=== PATIENT | female | born 1990 | race Caucasian/White ===

== ENCOUNTER 2021-11-07 17:34 | Day surgery (SDC) | payer OTHER ==
[2021-11-07 18:05] VITALS: BMI 24.4
[2021-11-07 18:50] LABS: Fetal Membranes Rupture No Membranes Rupture (No Rupture)
[2021-11-07] MEDS ORDERED: hydrALAZINE 20 MG/ML VIAL SLOW IVP PRN (19:33)
== END 2021-11-07 21:44 | disposition home or self-care (01) ==
LOC: CSHLD/OP 17:34
PROVIDERS: ATTEND Obstetrics & Gynecology
DX: O99.891 Other specified diseases and conditions complicating pregnancy (principal); N89.8 Other specified noninflammatory disorders of vagina; O99.333 Smoking (tobacco) complicating pregnancy, third trimester; F17.210 Nicotine dependence, cigarettes, uncomplicated; Z3A.39 39 weeks gestation of pregnancy
CPT/HCPCS: 76815; 84112; 87480; 87510; 87660; 99285

== ENCOUNTER 2021-11-12 21:04 | Inpatient (IN) | payer OTHER ==
[2021-11-12 21:28] VITALS: BMI 24.3
[2021-11-12] MEDS ORDERED: hydrALAZINE 20 MG/ML VIAL SLOW IVP PRN (22:19)
[2021-11-12] MEDS ORDERED: Acetaminophen 500 MG TAB PO PRN (22:20)
[2021-11-12] MEDS ORDERED: Lactated Ringer's 1,000 ML IV SCH (23:45)
[2021-11-13] MEDS ORDERED: Misoprostol 200 MCG TAB PR PRN (00:03)
[2021-11-13] MEDS ORDERED: Diphenoxylate HCl/Atropine Tablet PO PRN (00:03)
[2021-11-13] MEDS ORDERED: Lidocaine 1% (PF) 30 ML VIAL SC PRN (00:03)
[2021-11-13] MEDS ORDERED: Ibuprofen 800 MG TAB PO PRN (00:03)
[2021-11-13] MEDS ORDERED: Carboprost 250 MCG/ML AMP IM PRN (00:03)
[2021-11-13] MEDS ORDERED: Methylergonovine 0.2 MG/ML VIAL IM PRN (00:03)
[2021-11-13] MEDS ORDERED: NS w/ Oxytocin 30 units 500 ML IV SCH (00:15)
[2021-11-13] MEDS ORDERED: Fentanyl 2 mcg/Bup 0.1% Cadd 100 ML ONE ×2 (00:17→08:56)
[2021-11-13 00:22] LABS: #Basophils 0.1 10x3/uL (0.0-0.2); #Eosinphils 0.2 10x3/uL (0.0-0.5); #Neutrophils 5.3 10x3/uL (1.5-8.4); %Basophils 0.6 % (0.0-2.0); %Eosinophils 2.5 % (0.0-6.0); %Monocytes 12.4 % (0.0-10.0); Hemoglobin 11.4 g/dL (12.0-15.5); Mean Corpuscular HGB CONC 33.6 g/dL (32.0-36.0); Mean Corpuscular Hemoglobin 30.2 pg (27.0-33.0); Mean Corpuscular Volume 89.9 fl (81.6-98.3); Mean Platelet Volume 11.1 fl (7.4-10.4); Platelet Count 291 10x3/uL (150-450); Red Blood Cell (RBC) Count 3.77 10x6/uL (3.90-5.03); White Blood Cell (WBC) Count 8.4 10x3/uL (3.5-10.5)
[2021-11-13 00:34] LABS: ALT (SGPT) 12 U/L (8-55); AST (SGOT) 15 U/L (5-34); Albumin 3.3 g/dL (3.5-5.0); Alkaline Phosphatase 144 U/L (40-110); Anion Gap 14 mmol/L (10-20); BUN (Urea Nitrogen) 10 mg/dL (7.0-18.7); Bilirubin, Total 0.3 mg/dL (0.2-1.2); Calc. Creatinine Clearance 143 mL/min (70-130); Calcium 8.7 mg/dL (7.8-10.44); Carbon Dioxide 19 mmol/L (22-29); Chloride 108 mmol/L (98-107); Globulin 2.5 g/dL (2.4-3.5); Glucose 87 mg/dL (70-105); Protein, Total 5.8 g/dL (6.0-8.3); Sodium 137 mmol/L (136-145)
[2021-11-13] MEDS: Lactated Ringer's 1,000 ML IV SCH ×3 (00:43→17:29)
[2021-11-13 00:49] LABS: Hep B Surf Ag Non-Reactive S/CO (NonReactive)
[2021-11-13 00:50] LABS: Syphilis Antibody Nonreactive (Nonreactive); Syphilis Antibody Index 0.03 S/CO (<1.00 Non-Reactive)
[2021-11-13] MEDS ORDERED: diphenhydrAMINE 50 MG/ML VIAL IVP PRN (01:07)
[2021-11-13] MEDS ORDERED: Promethazine HCl 25 MG/ML VIAL IM PRN ×2 (01:07)
[2021-11-13] MEDS ORDERED: Naloxone HCl 0.4 mg/ml Vial IVP PRN ×2 (01:07)
[2021-11-13] MEDS ORDERED: Lactated Ringer's 500 ML IV PRN (01:07)
[2021-11-13] MEDS ORDERED: Hydrocerin (Eucerin) Cream 120 gm Jar TOP PRN (01:07)
[2021-11-13] MEDS ORDERED: ePHEDrine Sulfate 50 MG/10 ML VIAL SLOW IVP PRN (01:07)
[2021-11-13] MEDS ORDERED: Ondansetron PF 4 MG/2 ML Vial IVP PRN ×2 (01:07)
[2021-11-13 01:13] LABS: HBSAg Index 0.17 S/CO (0-0.99)
[2021-11-13] MEDS ORDERED: Communication Order-Pharmacy FS SCH (01:15)
[2021-11-13] MEDS ORDERED: Fentanyl 2 mcg/Bupivacaine 0.1% Cassette 100 ML EPIDURAL SCH (01:15)
[2021-11-13 03:24] LABS: SARS-CoV-2 NAA Rapid Test Not Detected (NotDetected)
[2021-11-13] MEDS ORDERED: Bupivacaine 0.25% HCL 30 ML VIAL ONE (07:00)
[2021-11-13] MEDS ORDERED: Preparation H Ointment 28 GM TUBE PR PRN (17:24)
[2021-11-13] MEDS ORDERED: Benzocaine-Menthol 82.5 ML CAN TOP PRN (17:24)
[2021-11-13] MEDS ORDERED: Milk Of Magnesia 30 ML UDCUP PO PRN (17:24)
[2021-11-13] MEDS ORDERED: Bisacodyl 10 MG SUPP PR PRN (17:24)
[2021-11-13] MEDS ORDERED: diphenhydrAMINE 25 MG CAP PO PRN (17:24)
[2021-11-13] MEDS ORDERED: hydrALAZINE 20 MG/ML VIAL SLOW IVP PRN ×2 (17:24)
[2021-11-13] MEDS ORDERED: Ferrous Sulfate 325 MG TAB PO SCH (18:00)
[2021-11-13] MEDS: Acetaminophen 325 MG TAB PO PRN (18:21)
[2021-11-13] MEDS: Ibuprofen 800 MG TAB PO SCH (22:08)
[2021-11-13] MEDS: Docusate Calcium (SURFAK) 240 MG CAP PO SCH (22:09)
[2021-11-14] MEDS ORDERED: HYDROcodone/Acetaminophen 5/325 mg Tablet PO SCH ×2 (01:45→21:00)
[2021-11-14] MEDS: Ibuprofen 800 MG TAB PO SCH ×3 (05:30→22:18)
[2021-11-14] MEDS: Ferrous Sulfate 325 MG TAB PO SCH ×2 (07:36→14:07)
[2021-11-14] MEDS: Acetaminophen 325 MG TAB PO PRN (08:08)
[2021-11-14] MEDS: Docusate Calcium (SURFAK) 240 MG CAP PO SCH ×2 (08:09→22:19)
[2021-11-14] MEDS ORDERED: Ondansetron ODT 4 MG TAB PO PRN (20:52)
[2021-11-14 21:24] VITALS: BP 138/80; TEMP 98.1
[2021-11-15] MEDS: Ibuprofen 800 MG TAB PO SCH (05:18)
[2021-11-15] MEDS: Ferrous Sulfate 325 MG TAB PO SCH (08:22)
[2021-11-15] MEDS: Docusate Calcium (SURFAK) 240 MG CAP PO SCH (08:23)
[2021-11-15] MEDS: Acetaminophen 325 MG TAB PO PRN (11:24)
== END 2021-11-15 11:45 | disposition home or self-care (01) | DRG 807 ==
LOC: CSHLD/OP 21:04 → CSHLD 11-13 00:02 → CSHPP 11-13 17:15
PROVIDERS: ADMIT Family Medicine; ATTEND Family Medicine
PROC: 10E0XZZ Delivery of Products of Conception, External Approach (ICD-10-PCS; principal; 2021-11-13)
PROC: 0KQM0ZZ Repair Perineum Muscle, Open Approach (ICD-10-PCS; 2021-11-13)
DX: O99.02 Anemia complicating childbirth (principal); Z37.0 Single live birth; Z20.822 Contact with and (suspected) exposure to COVID-19; D50.9 Iron deficiency anemia, unspecified; Z3A.40 40 weeks gestation of pregnancy; O99.334 Smoking (tobacco) complicating childbirth; F17.210 Nicotine dependence, cigarettes, uncomplicated; O70.1 Second degree perineal laceration during delivery; O43.893 Other placental disorders, third trimester
CPT/HCPCS: 36415; 51702; 80053; 85025; 86780; 86850; 86900; 86901; 87340; 99285; J2590; J7120; Q0162; U0002

== ENCOUNTER 2022-07-14 10:04 | Emergency (ER) | payer MEDICAID ==
[2022-07-14] MEDS ORDERED: Ibuprofen 100 MG/5 ML UDCUP ONE (11:18)
== END 2022-07-14 12:33 | disposition home or self-care (01) ==
LOC: CSHERS 10:04
DX: U07.1 COVID-19 (principal); J06.9 Acute upper respiratory infection, unspecified; F17.210 Nicotine dependence, cigarettes, uncomplicated
CPT/HCPCS: 99283; U0003; U0005

== ENCOUNTER → 2024-10-16 | Day surgery (SDC) | payer SELFPAY ==
[~2024-10-16] MED LIST: Carboprost 250 MCG/ML AMP ONE; Dexamethasone 4 mg/ml Vial ONE; Fentanyl 250 MCG/5 ML VIAL ONE; Ibuprofen 800 MG TAB PO PRN; Lactated Ringer's 1,000 ML IV SCH; Lidocaine 1% PF 5 ML VIAL ONE; Methylergonovine 0.2 MG/ML VIAL ONE; Misoprostol 200 MCG TAB ONE; Ondansetron PF 4 MG/2 ML Vial ONE; Oxytocin 10 UNITS/ML VIAL ONE; PHENYLEPHRINE-NS 100 MCG/ML 10 ML SYRINGE ONE; PROPOFOL 20 ML ONE; SUCCINYLCHOLINE/SOD CL,ISO/PF 200 MG/10 ML SYRINGE FS ONE; Simethicone Chewable 80 MG TAB PO PRN; Tranexamic Acid 1,000 MG/10 ML VIAL ONE; fentaNYL 50 mcg/mL 1 mL Vial ONE
[2024-10-18 00:14] LABS: #Basophils 0.03 10x3/uL (0.0-0.2); #Monocytes 0.15 10x3/uL (0.0-1.1); #Neutrophils 8.44 10x3/uL (1.5-8.4); %Basophils 0.3 % (0.0-2.0); %Lymphocytes 8.4 % (18.0-47.0); %Monocytes 1.6 % (0.0-10.0); %Neutrophils 89.3 % (40.0-75.0); Hematocrit 25.3 % (34.9-44.5); Mean Corpuscular HGB CONC 35.6 g/dL (32.0-36.0); Mean Corpuscular Hemoglobin 31.6 pg (27.0-33.0); Mean Corpuscular Volume 88.8 fL (81.6-98.3); Mean Platelet Volume 9.3 fL (7.4-10.4); Platelet Count 174 10x3/uL (150-450); RBC Distribution Width 13.2 % (11.5-14.5); Red Blood Cell (RBC) Count 2.85 10x6/uL (3.90-5.03); White Blood Cell (WBC) Count 9.5 10x3/uL (3.5-10.5)
[2024-10-18 00:20] LABS: #Basophils 0.05 10x3/uL (0.0-0.2); #Eosinophils 0.07 10x3/uL (0.0-0.5); #Monocytes 0.84 10x3/uL (0.0-1.1); #Neutrophils 11.13 10x3/uL (1.5-8.4); %Basophils 0.4 % (0.0-2.0); %Eosinophils 0.5 % (0.0-6.0); %Monocytes 6.1 % (0.0-10.0); %Neutrophils 80.6 % (40.0-75.0); Hematocrit 23.9 % (34.9-44.5); Hemoglobin 8.1 g/dL (12.0-15.5); Mean Corpuscular HGB CONC 33.9 g/dL (32.0-36.0); Mean Corpuscular Hemoglobin 31.3 pg (27.0-33.0); Mean Corpuscular Volume 92.3 fL (81.6-98.3); Mean Platelet Volume 9.1 fL (7.4-10.4); Platelet Count 260 10x3/uL (150-450); RBC Distribution Width 13.3 % (11.5-14.5); Red Blood Cell (RBC) Count 2.59 10x6/uL (3.90-5.03); White Blood Cell (WBC) Count 13.8 10x3/uL (3.5-10.5)
[2024-10-18 00:33] LABS: ALT (SGPT) 8 U/L (8-55); AST (SGOT) 11 U/L (5-34); Alkaline Phosphatase 27 U/L (40-110); Anion Gap 10 mmol/L (10-20); BUN (Urea Nitrogen) 9 mg/dL (7.0-18.7); Bilirubin, Total 0.5 mg/dL (0.2-1.2); Calc. Creatinine Clearance 0 mL/min (70-130); Calcium 7.5 mg/dL (7.8-10.44); Carbon Dioxide 19 mmol/L (22-29); Chloride 111 mmol/L (98-107); Estimated GFR 125; Globulin 1.8 g/dL (2.4-3.5); Glucose 99 mg/dL (70-105); Lipase 12 U/L (8-78); Potassium 3.8 mmol/L (3.5-5.1); Protein, Total 4.8 g/dL (6.0-8.3); Sodium 136 mmol/L (136-145)
== END ==
LOC: CSHERS 20:10 → CSHSDC/OP 22:00 → CSHERS 22:00 → CSHTELE 10-17 11:52 → UNDOADMIN 10-17 11:52
PROC: 10D17ZZ Extraction of Products of Conception, Retained, Via Natural or Artificial Opening (ICD-10-PCS; principal; 2024-10-16)
DX: O03.1 Delayed or excessive hemorrhage following incomplete spontaneous abortion (principal); O99.019 Anemia complicating pregnancy, unspecified trimester; F17.290 Nicotine dependence, other tobacco product, uncomplicated; Z3A.00 Weeks of gestation of pregnancy not specified
CPT/HCPCS: 36430; 76856; 80053; 83690; 84702; 85025; 86850; 86900; 86901; J1100; J2210; J2405; J2590; J2704; J3010; J3490; P9016; P9040